=== PATIENT | male | born 1940 | race Caucasian/White ===

== ENCOUNTER 2021-07-03 14:50 | Emergency (ER) | payer MEDICARE ==
[~2021-07-03] VITALS: Ht 170.2 cm; Wt 158.8 kg
[2021-07-03] MEDS ORDERED: SOTROVIMAB 500 MG in SODIUM CHLORIDE 0.9% 100 ML IV ONE (15:00)
[2021-07-03] MEDS ORDERED: SODIUM CHLORIDE 0.9% 100 ML ONE (15:09)
== END 2021-07-03 18:05 | disposition home or self-care (01) ==
LOC: ER 15:11
DX: U07.1 COVID-19 (principal); R05.9 Cough, unspecified; I10 Essential (primary) hypertension; E11.9 Type 2 diabetes mellitus without complications; E66.9 Obesity, unspecified; Z95.1 Presence of aortocoronary bypass graft
CPT/HCPCS: 99283; J7050

== ENCOUNTER 2021-08-17 21:06 | Inpatient (IN) | payer MEDICARE ==
[~2021-08-17] VITALS: Ht 167.6 cm; Wt 161.6 kg
[2021-08-17 21:35] LABS: BASOPHILS # (AUTO) 0.1 (0.0-0.1); BASOPHILS % 1.2 % (0.0-1.0); EOSINOPHILS # (AUTO) 0.2 (0.0-0.4); EOSINOPHILS % 2.6 % (0.0-6.0); HEMATOCRIT 46.7 % (38.2-49.6); HEMOGLOBIN 14.2 g/dL (14.0-18.0); LYMPHOCYTES # (AUTO) 0.8 (1.0-3.2); LYMPHOCYTES % 10.3 % (18.0-39.1); MEAN CORPUSCULAR HEMOGLOBIN 28.9 pg (28-32); MEAN CORPUSCULAR HGB CONC 30.4 g/dL (31-35); MEAN CORPUSCULAR VOLUME 95.1 fL (81-99); MONOCYTES # (AUTO) 0.9 (0.2-0.8); MONOCYTES % 12.2 % (4.4-11.3); NEUTROPHILS # (AUTO) 5.6 (2.1-6.9); NEUTROPHILS % 72.1 % (38.7-80.0); PLATELET COUNT 182 x10e3/uL (140-360); RED BLOOD COUNT 4.91 x10e6/uL (4.3-5.7); RED CELL DISTRIBUTION WIDTH 15.9 % (11.7-14.4)
[2021-08-17 21:54] LABS: ALBUMIN 3.4 g/dL (3.5-5.0); ALBUMIN/GLOBULIN RATIO 0.9 (0.8-2.0); ANION GAP 14.2 mmol/L (8-16); CALCIUM 9.3 mg/dL (8.4-10.2); CREATININE, SERUM 1.19 mg/dL (0.72-1.25); POTASSIUM 4.2 mmol/L (3.5-5.1)
[2021-08-17 22:00] LABS: CREATINE KINASE MB 2.1 ng/mL (0-5.0)
[2021-08-17 22:03] LABS: B-TYPE NATRIURETIC PEPTIDE2 138.1 pg/mL (0-100)
[2021-08-17] MEDS ORDERED: DEXTROSE 50% SYRINGE 50 ML IV PRN (23:00)
[2021-08-17] MEDS ORDERED: ONDANSETRON HCL INJ 2MG/ML 2ML 2 MG/ML VIAL IV PRN (23:00)
[2021-08-17] MEDS ORDERED: FUROSEMIDE INJ 10 MG/ML 4 ML VIAL IV ONE (23:00)
[2021-08-17] MEDS: CEFTRIAXONE 2 GM in SODIUM CHLORIDE 0.9% 100 ML IV SCH (23:21)
[2021-08-17 23:50] VITALS: BP 118/56
[2021-08-17 23:55] VITALS: BP 118/56
[2021-08-18] VITALS (7 sets, daily range): BP systolic 118–150; BP diastolic 56–86
[2021-08-18 02:20] LABS: CREATINE KINASE MB 2.2 ng/mL (0-5.0)
[2021-08-18] MEDS ORDERED: TOPROL XL50 MG PO (06:26)
[2021-08-18] MEDS ORDERED: ALLEGRA ALLERGY60 MG PO (06:26)
[2021-08-18] MEDS ORDERED: ALLOPURINOL100 MG PO (06:26)
[2021-08-18] MEDS ORDERED: ASPIRIN81 MG PO (06:26)
[2021-08-18] MEDS ORDERED: FOLIC ACID0.4 MG PO (06:26)
[2021-08-18] MEDS ORDERED: ROSUVASTATIN CA40 MG (06:26)
[2021-08-18] MEDS ORDERED: AMLODIPINE BESY10 MG PO (06:26)
[2021-08-18] MEDS ORDERED: BENICAR20 MG PO (06:26)
[2021-08-18] MEDS ORDERED: KLOR-CON M1010 MEQ PO (06:26)
[2021-08-18] MEDS ORDERED: MUCINEX600 MG PO (06:26)
[2021-08-18] MEDS ORDERED: HYDROCHLOROTHIA25 MG (06:26)
[2021-08-18] MEDS ORDERED: FUROSEMIDE40 MG PO (06:26)
[2021-08-18] MEDS ORDERED: METFORMIN HCL500 MG PO (06:26)
[2021-08-18 06:55] LABS: CREATINE KINASE MB 3.6 ng/mL (0-5.0)
[2021-08-18] MEDS ORDERED: CHOLECALCIFEROL1 GM PO (06:57)
[2021-08-18] MEDS: INSULIN REGULAR, HUMAN 100 UNIT/1 ML SQ SCH ×4 (07:30→21:00)
[2021-08-18 08:19] LABS: BASOPHILS # (AUTO) 0.1 (0.0-0.1); BASOPHILS % 0.9 % (0.0-1.0); EOSINOPHILS # (AUTO) 0.1 (0.0-0.4); EOSINOPHILS % 1.8 % (0.0-6.0); HEMOGLOBIN 13.6 g/dL (14.0-18.0); LYMPHOCYTES # (AUTO) 0.7 (1.0-3.2); LYMPHOCYTES % 9.3 % (18.0-39.1); MEAN CORPUSCULAR HEMOGLOBIN 28.6 pg (28-32); MEAN CORPUSCULAR HGB CONC 30.2 g/dL (31-35); MEAN CORPUSCULAR VOLUME 94.5 fL (81-99); MONOCYTES # (AUTO) 0.8 (0.2-0.8); NEUTROPHILS # (AUTO) 5.8 (2.1-6.9); NEUTROPHILS % 75.3 % (38.7-80.0); PLATELET COUNT 187 x10e3/uL (140-360); RED BLOOD COUNT 4.76 x10e6/uL (4.3-5.7); RED CELL DISTRIBUTION WIDTH 15.9 % (11.7-14.4)
[2021-08-18 08:40] LABS: ALBUMIN 3.2 g/dL (3.5-5.0); CALCIUM 8.8 mg/dL (8.4-10.2); CREATININE, SERUM 1.03 mg/dL (0.72-1.25)
[2021-08-18] MEDS: CEFTRIAXONE 2 GM in SODIUM CHLORIDE 0.9% 100 ML IV SCH (09:18)
[2021-08-18] MEDS: ZINC SULFATE 50 MG CAP PO SCH (09:18)
[2021-08-18] MEDS: ASCORBIC ACID 500 MG TAB PO SCH ×2 (09:18→17:01)
[2021-08-18] MEDS: DEXAMETHASONE SOD PHOS 10 MG/1 ML VIAL IV SCH (09:18)
[2021-08-18] MEDS: ENOXAPARIN 30 MG/0.3 ML SYR SC SCH ×2 (09:18→17:01)
[2021-08-18] MEDS: FUROSEMIDE INJ 10 MG/ML 4 ML VIAL IV SCH (11:20)
[2021-08-18] MEDS: HYDRALAZINE HCL 25 MG TAB PO SCH ×2 (11:20→17:01)
[2021-08-18] MEDS ORDERED: SODIUM CHLORIDE 0.9% 100 ML ONE (11:22)
[2021-08-18] MEDS ORDERED: IOPAMIDOL 370 MG/ML 200 ML INFUS..BTL INJ ONE (11:22)
[2021-08-18 14:35] LABS: BASOPHILS # (AUTO) 0.1 (0.0-0.1); BASOPHILS % 0.7 % (0.0-1.0); EOSINOPHILS % 0.3 % (0.0-6.0); HEMATOCRIT 48.1 % (38.2-49.6); HEMOGLOBIN 14.5 g/dL (14.0-18.0); LYMPHOCYTES # (AUTO) 0.3 (1.0-3.2); LYMPHOCYTES % 4.8 % (18.0-39.1); MEAN CORPUSCULAR HEMOGLOBIN 28.8 pg (28-32); MEAN CORPUSCULAR HGB CONC 30.1 g/dL (31-35); MEAN CORPUSCULAR VOLUME 95.4 fL (81-99); MONOCYTES # (AUTO) 0.2 (0.2-0.8); MONOCYTES % 2.6 % (4.4-11.3); NEUTROPHILS # (AUTO) 6.2 (2.1-6.9); NEUTROPHILS % 89.4 % (38.7-80.0); PLATELET COUNT 191 x10e3/uL (140-360); RED BLOOD COUNT 5.04 x10e6/uL (4.3-5.7); RED CELL DISTRIBUTION WIDTH 15.8 % (11.7-14.4)
[2021-08-18 14:55] LABS: CREATINE KINASE MB 5.7 ng/mL (0-5.0)
[2021-08-18] MEDS ORDERED: LORATADINE 10 MG TAB PO ONE (17:30)
[2021-08-18] MEDS: METFORMIN HCL 500 MG TAB PO SCH (20:56)
[2021-08-19] VITALS (9 sets, daily range): BP systolic 116–149; BP diastolic 55–79
[2021-08-19 07:00] LABS: BASOPHILS % 0.4 % (0.0-1.0); EOSINOPHILS % 0.1 % (0.0-6.0); HEMATOCRIT 45.9 % (38.2-49.6); HEMOGLOBIN 13.7 g/dL (14.0-18.0); LYMPHOCYTES # (AUTO) 0.6 (1.0-3.2); LYMPHOCYTES % 7.5 % (18.0-39.1); MEAN CORPUSCULAR HEMOGLOBIN 28.8 pg (28-32); MEAN CORPUSCULAR HGB CONC 29.8 g/dL (31-35); MEAN CORPUSCULAR VOLUME 96.4 fL (81-99); MONOCYTES # (AUTO) 0.8 (0.2-0.8); MONOCYTES % 9.5 % (4.4-11.3); NEUTROPHILS # (AUTO) 6.4 (2.1-6.9); NEUTROPHILS % 80.8 % (38.7-80.0); PLATELET COUNT 204 x10e3/uL (140-360); RED BLOOD COUNT 4.76 x10e6/uL (4.3-5.7); RED CELL DISTRIBUTION WIDTH 15.7 % (11.7-14.4)
[2021-08-19] MEDS: INSULIN REGULAR, HUMAN 100 UNIT/1 ML SQ SCH ×4 (07:18→21:00)
[2021-08-19 07:26] LABS: ALBUMIN 3.3 g/dL (3.5-5.0); ANION GAP 13.2 mmol/L (8-16); CALCIUM 9.1 mg/dL (8.4-10.2); CREATININE, SERUM 0.99 mg/dL (0.72-1.25); POTASSIUM 4.2 mmol/L (3.5-5.1)
[2021-08-19] MEDS: CEFTRIAXONE 2 GM in SODIUM CHLORIDE 0.9% 100 ML IV SCH (08:48)
[2021-08-19] MEDS: DEXAMETHASONE SOD PHOS 10 MG/1 ML VIAL IV SCH (08:48)
[2021-08-19] MEDS: FUROSEMIDE INJ 10 MG/ML 4 ML VIAL IV SCH (08:48)
[2021-08-19] MEDS: METFORMIN HCL 500 MG TAB PO SCH ×3 (08:48→17:08)
[2021-08-19] MEDS: FOLIC ACID 1 MG TAB PO SCH (08:49)
[2021-08-19] MEDS: OLMESARTAN 20 MG TAB PO SCH (08:49)
[2021-08-19] MEDS: HYDRALAZINE HCL 25 MG TAB PO SCH ×2 (08:49→17:08)
[2021-08-19] MEDS: GUAIFENESIN 600 MG TAB PO SCH (08:49)
[2021-08-19] MEDS: ASPIRIN 81 MG CHEW TAB PO SCH (08:49)
[2021-08-19] MEDS: ZINC SULFATE 50 MG CAP PO SCH (08:50)
[2021-08-19] MEDS: BALSAM PERU/CASTOR OIL 60 GM OINT...G. TP SCH (08:50)
[2021-08-19] MEDS: ENOXAPARIN 30 MG/0.3 ML SYR SC SCH ×2 (08:50→17:09)
[2021-08-19] MEDS: ALLOPURINOL 100 MG TAB PO SCH ×2 (08:50→17:09)
[2021-08-19] MEDS: ASCORBIC ACID 500 MG TAB PO SCH ×2 (08:50→17:09)
[2021-08-19] MEDS: METOPROLOL SUCCINATE 50 MG TAB XL PO SCH ×2 (08:50→17:08)
[2021-08-19] MEDS: CHOLECALCIFEROL 1,000 UNIT TAB PO SCH (08:50)
[2021-08-19] MEDS: POTASSIUM CHLORIDE 10MEQ EA PO SCH (08:51)
[2021-08-19] MEDS ORDERED: NON-FORMULARY MEDICATION (Folic Acid* 0.4 MG) PO SCH (09:00)
[2021-08-19] MEDS ORDERED: CHOLECALCIFEROL 1 GM PO SCH (09:00)
[2021-08-19] MEDS ORDERED: POTASSIUM CHLORIDE 10 MEQ PO SCH (09:00)
[2021-08-19] MEDS ORDERED: SALINE 0.65% NAS SOLN 1 SPRAY BTL PRN (13:45)
[2021-08-19] MEDS: SODIUM CHLORIDE/ALOE VERA 14.1GM NASAL GEL SCH (17:08)
[2021-08-19] MEDS ORDERED: SODIUM CHLORIDE 0.9% 50ML 50 ML ONE (19:07)
[2021-08-19] MEDS ORDERED: IOPAMIDOL 370 MG/ML 200 ML INFUS..BTL INJ ONE (19:08)
[2021-08-19] MEDS: AZITHROMYCIN 250 MG TAB PO SCH (21:27)
[2021-08-20] VITALS (7 sets, daily range): BP systolic 105–125; BP diastolic 18–68
[2021-08-20 05:04] LABS: BASOPHILS % 0.3 % (0.0-1.0); EOSINOPHILS % 0.2 % (0.0-6.0); HEMATOCRIT 49.9 % (38.2-49.6); HEMOGLOBIN 14.7 g/dL (14.0-18.0); LYMPHOCYTES % 9.7 % (18.0-39.1); MEAN CORPUSCULAR HEMOGLOBIN 28.7 pg (28-32); MEAN CORPUSCULAR HGB CONC 29.5 g/dL (31-35); MEAN CORPUSCULAR VOLUME 97.5 fL (81-99); MONOCYTES % 10.2 % (4.4-11.3); NEUTROPHILS % 78.4 % (38.7-80.0); PLATELET COUNT 228 x10e3/uL (140-360); RED BLOOD COUNT 5.12 x10e6/uL (4.3-5.7); RED CELL DISTRIBUTION WIDTH 15.7 % (11.7-14.4)
[2021-08-20 05:39] LABS: ALBUMIN 3.6 g/dL (3.5-5.0); CALCIUM 9.5 mg/dL (8.4-10.2); CREATININE, SERUM 1.16 mg/dL (0.72-1.25)
[2021-08-20] MEDS: INSULIN REGULAR, HUMAN 100 UNIT/1 ML SQ SCH ×4 (07:30→20:24)
[2021-08-20] MEDS: FUROSEMIDE INJ 10 MG/ML 4 ML VIAL IV SCH (08:51)
[2021-08-20] MEDS: DEXAMETHASONE SOD PHOS 10 MG/1 ML VIAL IV SCH (08:51)
[2021-08-20] MEDS: CEFTRIAXONE 2 GM in SODIUM CHLORIDE 0.9% 100 ML IV SCH (08:51)
[2021-08-20] MEDS: ASPIRIN 81 MG CHEW TAB PO SCH (08:52)
[2021-08-20] MEDS: SODIUM CHLORIDE/ALOE VERA 14.1GM NASAL GEL SCH ×2 (08:52→16:47)
[2021-08-20] MEDS: HYDRALAZINE HCL 25 MG TAB PO SCH ×2 (08:52→16:47)
[2021-08-20] MEDS: FOLIC ACID 1 MG TAB PO SCH (08:52)
[2021-08-20] MEDS: METOPROLOL SUCCINATE 50 MG TAB XL PO SCH ×2 (08:53→16:48)
[2021-08-20] MEDS: ENOXAPARIN 30 MG/0.3 ML SYR SC SCH ×2 (08:53→16:48)
[2021-08-20] MEDS: ASCORBIC ACID 500 MG TAB PO SCH ×2 (08:53→16:48)
[2021-08-20] MEDS: CHOLECALCIFEROL 1,000 UNIT TAB PO SCH (08:53)
[2021-08-20] MEDS: BALSAM PERU/CASTOR OIL 60 GM OINT...G. TP SCH (08:53)
[2021-08-20] MEDS: GUAIFENESIN 600 MG TAB PO SCH (08:53)
[2021-08-20] MEDS: ZINC SULFATE 50 MG CAP PO SCH (08:53)
[2021-08-20] MEDS: ALLOPURINOL 100 MG TAB PO SCH ×2 (08:53→16:48)
[2021-08-20] MEDS: OLMESARTAN 20 MG TAB PO SCH (08:54)
[2021-08-20] MEDS: METFORMIN HCL 500 MG TAB PO SCH ×3 (08:55→16:47)
[2021-08-20] MEDS: POTASSIUM CHLORIDE 10MEQ EA PO SCH (08:55)
[2021-08-20] MEDS ORDERED: ONDANSETRON HCL 4 MG ORAL DISINTEGRATING TAB PO PRN (10:45)
[2021-08-20] MEDS: ACETAMINOPHEN 325 MG TAB PO PRN ×2 (20:23→22:06)
[2021-08-20] MEDS: AZITHROMYCIN 250 MG TAB PO SCH (20:23)
[2021-08-21] VITALS (8 sets, daily range): BP systolic 115–128; BP diastolic 56–68
[2021-08-21 04:58] LABS: BASOPHILS % 0.3 % (0.0-1.0); HEMATOCRIT 50.5 % (38.2-49.6); HEMOGLOBIN 14.8 g/dL (14.0-18.0); LYMPHOCYTES # (AUTO) 0.9 (1.0-3.2); MEAN CORPUSCULAR HEMOGLOBIN 28.5 pg (28-32); MEAN CORPUSCULAR HGB CONC 29.3 g/dL (31-35); MEAN CORPUSCULAR VOLUME 97.1 fL (81-99); MONOCYTES % 10.1 % (4.4-11.3); NEUTROPHILS # (AUTO) 7.7 (2.1-6.9); NEUTROPHILS % 78.5 % (38.7-80.0); PLATELET COUNT 222 x10e3/uL (140-360); RED CELL DISTRIBUTION WIDTH 15.7 % (11.7-14.4)
[2021-08-21 05:34] LABS: ALBUMIN 3.6 g/dL (3.5-5.0); ALBUMIN/GLOBULIN RATIO 1.1 (0.8-2.0); ANION GAP 15.8 mmol/L (8-16); CALCIUM 9.6 mg/dL (8.4-10.2); CREATININE, SERUM 1.2 mg/dL (0.72-1.25); POTASSIUM 4.8 mmol/L (3.5-5.1)
[2021-08-21] MEDS: INSULIN REGULAR, HUMAN 100 UNIT/1 ML SQ SCH ×4 (07:30→20:27)
[2021-08-21] MEDS: METFORMIN HCL 500 MG TAB PO SCH ×3 (08:18→16:52)
[2021-08-21] MEDS: CEFTRIAXONE 2 GM in SODIUM CHLORIDE 0.9% 100 ML IV SCH (08:18)
[2021-08-21] MEDS: SODIUM CHLORIDE/ALOE VERA 14.1GM NASAL GEL SCH ×2 (08:18→16:52)
[2021-08-21] MEDS: DEXAMETHASONE SOD PHOS 10 MG/1 ML VIAL IV SCH (08:18)
[2021-08-21] MEDS: FOLIC ACID 1 MG TAB PO SCH (08:19)
[2021-08-21] MEDS: HYDRALAZINE HCL 25 MG TAB PO SCH ×2 (08:19→16:52)
[2021-08-21] MEDS: ASPIRIN 81 MG CHEW TAB PO SCH (08:19)
[2021-08-21] MEDS: OLMESARTAN 20 MG TAB PO SCH (08:19)
[2021-08-21] MEDS: FUROSEMIDE 40 MG TAB PO SCH (08:19)
[2021-08-21] MEDS: ASCORBIC ACID 500 MG TAB PO SCH ×2 (08:19→16:52)
[2021-08-21] MEDS: GUAIFENESIN 600 MG TAB PO SCH (08:19)
[2021-08-21] MEDS: POTASSIUM CHLORIDE 10MEQ EA PO SCH (08:19)
[2021-08-21] MEDS: ENOXAPARIN 30 MG/0.3 ML SYR SC SCH ×2 (08:20→16:52)
[2021-08-21] MEDS: ZINC SULFATE 50 MG CAP PO SCH (08:20)
[2021-08-21] MEDS: METOPROLOL SUCCINATE 50 MG TAB XL PO SCH ×2 (08:20→16:53)
[2021-08-21] MEDS: CHOLECALCIFEROL 1,000 UNIT TAB PO SCH (08:20)
[2021-08-21] MEDS: ALLOPURINOL 100 MG TAB PO SCH ×2 (08:20→16:52)
[2021-08-21] MEDS: BALSAM PERU/CASTOR OIL 60 GM OINT...G. TP SCH (08:20)
[2021-08-22] VITALS (8 sets, daily range): BP systolic 123–145; BP diastolic 48–96
[2021-08-22 06:38] LABS: BASOPHILS % 0.4 % (0.0-1.0); EOSINOPHILS % 0.4 % (0.0-6.0); HEMATOCRIT 51.6 % (38.2-49.6); HEMOGLOBIN 14.8 g/dL (14.0-18.0); LYMPHOCYTES % 9.1 % (18.0-39.1); MEAN CORPUSCULAR HEMOGLOBIN 28.7 pg (28-32); MEAN CORPUSCULAR HGB CONC 28.7 g/dL (31-35); MONOCYTES # (AUTO) 1.2 (0.2-0.8); MONOCYTES % 10.8 % (4.4-11.3); NEUTROPHILS # (AUTO) 8.5 (2.1-6.9); NEUTROPHILS % 77.4 % (38.7-80.0); PLATELET COUNT 172 x10e3/uL (140-360); RED BLOOD COUNT 5.16 x10e6/uL (4.3-5.7); RED CELL DISTRIBUTION WIDTH 15.6 % (11.7-14.4)
[2021-08-22 07:01] LABS: ALBUMIN 3.5 g/dL (3.5-5.0); ALBUMIN/GLOBULIN RATIO 1.1 (0.8-2.0); ANION GAP 17.1 mmol/L (8-16); CALCIUM 9.5 mg/dL (8.4-10.2); CREATININE, SERUM 1.33 mg/dL (0.72-1.25); POTASSIUM 5.1 mmol/L (3.5-5.1)
[2021-08-22] MEDS: INSULIN REGULAR, HUMAN 100 UNIT/1 ML SQ SCH ×4 (07:30→20:46)
[2021-08-22] MEDS: OLMESARTAN 20 MG TAB PO SCH (08:24)
[2021-08-22] MEDS: METFORMIN HCL 500 MG TAB PO SCH ×3 (08:24→16:50)
[2021-08-22] MEDS: HYDRALAZINE HCL 25 MG TAB PO SCH ×2 (08:24→16:50)
[2021-08-22] MEDS: FOLIC ACID 1 MG TAB PO SCH (08:24)
[2021-08-22] MEDS: DEXAMETHASONE SOD PHOS 10 MG/1 ML VIAL IV SCH (08:24)
[2021-08-22] MEDS: ASPIRIN 81 MG CHEW TAB PO SCH (08:24)
[2021-08-22] MEDS: ZINC SULFATE 50 MG CAP PO SCH (08:25)
[2021-08-22] MEDS: CHOLECALCIFEROL 1,000 UNIT TAB PO SCH (08:25)
[2021-08-22] MEDS: METOPROLOL SUCCINATE 50 MG TAB XL PO SCH ×2 (08:25→16:52)
[2021-08-22] MEDS: ASCORBIC ACID 500 MG TAB PO SCH ×2 (08:25→16:50)
[2021-08-22] MEDS: GUAIFENESIN 600 MG TAB PO SCH (08:25)
[2021-08-22] MEDS: FUROSEMIDE 40 MG TAB PO SCH (08:25)
[2021-08-22] MEDS: ENOXAPARIN 30 MG/0.3 ML SYR SC SCH ×2 (08:25→16:50)
[2021-08-22] MEDS: ALLOPURINOL 100 MG TAB PO SCH ×2 (08:25→16:50)
[2021-08-22] MEDS: BALSAM PERU/CASTOR OIL 60 GM OINT...G. TP SCH (08:25)
[2021-08-22] MEDS: SODIUM CHLORIDE/ALOE VERA 14.1GM NASAL GEL SCH ×2 (08:26→16:51)
[2021-08-22] MEDS: POTASSIUM CHLORIDE 10MEQ EA PO SCH (08:26)
[2021-08-22 18:34] LABS: MAGNESIUM 2.1 MG/DL (1.3-2.1)
[2021-08-22 18:55] LABS: THYROID STIMULATING HORMONE 1.487 uIU/mL (0.350-4.940)
[2021-08-22] MEDS ORDERED: NYSTATIN 15 GM POWDER UD BTL TOP PRN (20:00)
[2021-08-22] MEDS: ACETAMINOPHEN 325 MG TAB PO PRN (20:47)
[2021-08-23] VITALS (7 sets, daily range): BP systolic 123–140; BP diastolic 53–96
[2021-08-23] MEDS: METFORMIN HCL 500 MG TAB PO SCH ×3 (08:00→17:55)
[2021-08-23] MEDS: INSULIN REGULAR, HUMAN 100 UNIT/1 ML SQ SCH ×4 (08:55→19:46)
[2021-08-23 08:56] LABS: BASOPHILS # (AUTO) 0.1 (0.0-0.1); BASOPHILS % 0.4 % (0.0-1.0); EOSINOPHILS # (AUTO) 0.2 (0.0-0.4); EOSINOPHILS % 1.2 % (0.0-6.0); HEMATOCRIT 52.6 % (38.2-49.6); HEMOGLOBIN 15.3 g/dL (14.0-18.0); LYMPHOCYTES # (AUTO) 1.5 (1.0-3.2); LYMPHOCYTES % 11.9 % (18.0-39.1); MEAN CORPUSCULAR HEMOGLOBIN 28.6 pg (28-32); MEAN CORPUSCULAR HGB CONC 29.1 g/dL (31-35); MEAN CORPUSCULAR VOLUME 98.3 fL (81-99); MONOCYTES # (AUTO) 1.5 (0.2-0.8); NEUTROPHILS # (AUTO) 9.1 (2.1-6.9); NEUTROPHILS % 72.6 % (38.7-80.0); PLATELET COUNT 195 x10e3/uL (140-360); RED BLOOD COUNT 5.35 x10e6/uL (4.3-5.7); RED CELL DISTRIBUTION WIDTH 15.6 % (11.7-14.4)
[2021-08-23] MEDS: HYDRALAZINE HCL 25 MG TAB PO SCH ×2 (08:56→17:58)
[2021-08-23] MEDS: SODIUM CHLORIDE/ALOE VERA 14.1GM NASAL GEL SCH ×2 (08:56→17:55)
[2021-08-23] MEDS: DEXAMETHASONE SOD PHOS 10 MG/1 ML VIAL IV SCH (08:56)
[2021-08-23] MEDS: OLMESARTAN 20 MG TAB PO SCH (08:57)
[2021-08-23] MEDS: ASPIRIN 81 MG CHEW TAB PO SCH (08:57)
[2021-08-23] MEDS: FOLIC ACID 1 MG TAB PO SCH (08:57)
[2021-08-23] MEDS: GUAIFENESIN 600 MG TAB PO SCH (08:58)
[2021-08-23] MEDS: ASCORBIC ACID 500 MG TAB PO SCH ×2 (08:58→17:55)
[2021-08-23] MEDS: ZINC SULFATE 50 MG CAP PO SCH (08:58)
[2021-08-23] MEDS: METOPROLOL SUCCINATE 50 MG TAB XL PO SCH ×2 (08:58→17:58)
[2021-08-23] MEDS: CHOLECALCIFEROL 1,000 UNIT TAB PO SCH (08:58)
[2021-08-23] MEDS: BALSAM PERU/CASTOR OIL 60 GM OINT...G. TP SCH (08:59)
[2021-08-23] MEDS: ALLOPURINOL 100 MG TAB PO SCH ×2 (08:59→17:55)
[2021-08-23] MEDS: ENOXAPARIN 30 MG/0.3 ML SYR SC SCH ×2 (08:59→17:55)
[2021-08-23] MEDS: POTASSIUM CHLORIDE 10MEQ EA PO SCH (09:00)
[2021-08-23 09:31] LABS: ALBUMIN 3.5 g/dL (3.5-5.0); CALCIUM 9.5 mg/dL (8.4-10.2); CREATININE, SERUM 0.94 mg/dL (0.72-1.25)
[2021-08-23 09:32] LABS: ALBUMIN/GLOBULIN RATIO 1.2 (0.8-2.0)
[2021-08-23] MEDS ORDERED: FLUCONAZOLE 100 MG TAB PO ONE (20:00)
[2021-08-24] VITALS (7 sets, daily range): BP systolic 111–133; BP diastolic 55–78
[2021-08-24 05:27] LABS: BASOPHILS # (AUTO) 0.1 (0.0-0.1); BASOPHILS % 0.5 % (0.0-1.0); EOSINOPHILS # (AUTO) 0.2 (0.0-0.4); EOSINOPHILS % 1.8 % (0.0-6.0); HEMATOCRIT 49.9 % (38.2-49.6); HEMOGLOBIN 14.6 g/dL (14.0-18.0); LYMPHOCYTES # (AUTO) 0.8 (1.0-3.2); LYMPHOCYTES % 6.8 % (18.0-39.1); MEAN CORPUSCULAR HEMOGLOBIN 28.9 pg (28-32); MEAN CORPUSCULAR HGB CONC 29.3 g/dL (31-35); MEAN CORPUSCULAR VOLUME 98.6 fL (81-99); MONOCYTES # (AUTO) 1.3 (0.2-0.8); MONOCYTES % 11.6 % (4.4-11.3); NEUTROPHILS # (AUTO) 8.6 (2.1-6.9); NEUTROPHILS % 77.4 % (38.7-80.0); PLATELET COUNT 184 x10e3/uL (140-360); RED BLOOD COUNT 5.06 x10e6/uL (4.3-5.7); RED CELL DISTRIBUTION WIDTH 15.4 % (11.7-14.4)
[2021-08-24 05:53] LABS: ALBUMIN 3.3 g/dL (3.5-5.0); ALBUMIN/GLOBULIN RATIO 1.2 (0.8-2.0); ANION GAP 14.6 mmol/L (8-16); CALCIUM 9.4 mg/dL (8.4-10.2); CREATININE, SERUM 0.84 mg/dL (0.72-1.25); POTASSIUM 4.6 mmol/L (3.5-5.1)
[2021-08-24] MEDS: INSULIN REGULAR, HUMAN 100 UNIT/1 ML SQ SCH ×4 (07:30→20:20)
[2021-08-24] MEDS: METFORMIN HCL 500 MG TAB PO SCH ×3 (08:45→17:03)
[2021-08-24] MEDS: GUAIFENESIN 600 MG TAB PO SCH (08:46)
[2021-08-24] MEDS: ASPIRIN 81 MG CHEW TAB PO SCH (08:46)
[2021-08-24] MEDS: POTASSIUM CHLORIDE 10MEQ EA PO SCH (08:46)
[2021-08-24] MEDS: FOLIC ACID 1 MG TAB PO SCH (08:46)
[2021-08-24] MEDS: SODIUM CHLORIDE/ALOE VERA 14.1GM NASAL GEL SCH ×2 (08:46→17:03)
[2021-08-24] MEDS: CHOLECALCIFEROL 1,000 UNIT TAB PO SCH (08:47)
[2021-08-24] MEDS: ENOXAPARIN 30 MG/0.3 ML SYR SC SCH ×2 (08:47→17:04)
[2021-08-24] MEDS: BALSAM PERU/CASTOR OIL 60 GM OINT...G. TP SCH (08:47)
[2021-08-24] MEDS: METOPROLOL SUCCINATE 50 MG TAB XL PO SCH ×2 (08:47→17:04)
[2021-08-24] MEDS: ASCORBIC ACID 500 MG TAB PO SCH ×2 (08:47→17:04)
[2021-08-24] MEDS: ZINC SULFATE 50 MG CAP PO SCH (08:47)
[2021-08-24] MEDS: ALLOPURINOL 100 MG TAB PO SCH ×2 (08:47→17:04)
[2021-08-24] MEDS: DEXAMETHASONE SOD PHOS 10 MG/1 ML VIAL IV SCH (08:48)
[2021-08-24] MEDS: HYDRALAZINE HCL 25 MG TAB PO SCH ×2 (09:00→17:03)
[2021-08-24] MEDS: OLMESARTAN 20 MG TAB PO SCH (09:00)
[2021-08-24] MEDS ORDERED: ZOLPIDEM TARTRATE 10 MG TAB PO SCH (21:00)
[2021-08-25 01:38] VITALS: BP 137/64
[2021-08-25 02:57] LABS: BASOPHILS % 0.2 % (0.0-1.0); EOSINOPHILS % 0.1 % (0.0-6.0); HEMATOCRIT 49.9 % (38.2-49.6); HEMOGLOBIN 14.4 g/dL (14.0-18.0); LYMPHOCYTES # (AUTO) 0.6 (1.0-3.2); MEAN CORPUSCULAR HEMOGLOBIN 28.7 pg (28-32); MEAN CORPUSCULAR HGB CONC 28.9 g/dL (31-35); MEAN CORPUSCULAR VOLUME 99.6 fL (81-99); MONOCYTES # (AUTO) 0.9 (0.2-0.8); MONOCYTES % 7.7 % (4.4-11.3); NEUTROPHILS # (AUTO) 9.5 (2.1-6.9); NEUTROPHILS % 85.1 % (38.7-80.0); PLATELET COUNT 186 x10e3/uL (140-360); RED BLOOD COUNT 5.01 x10e6/uL (4.3-5.7); RED CELL DISTRIBUTION WIDTH 15.2 % (11.7-14.4)
[2021-08-25 03:09] VITALS: BP 131/69
[2021-08-25 03:11] LABS: ALBUMIN 3.2 g/dL (3.5-5.0); BILIRUBIN,DIRECT 0.2 mg/dL (0.0-0.5)
[2021-08-25 03:24] LABS: CALCIUM 9.5 mg/dL (8.4-10.2); CREATININE, SERUM 0.84 mg/dL (0.72-1.25)
[2021-08-25] MEDS: INSULIN REGULAR, HUMAN 100 UNIT/1 ML SQ SCH ×2 (07:30→11:30)
[2021-08-25 08:00] VITALS: BP 131/69
[2021-08-25 08:11] VITALS: BP 112/57
[2021-08-25] MEDS: OLMESARTAN 20 MG TAB PO SCH (08:59)
[2021-08-25] MEDS: HYDRALAZINE HCL 25 MG TAB PO SCH (08:59)
[2021-08-25] MEDS: ASPIRIN 81 MG CHEW TAB PO SCH (08:59)
[2021-08-25] MEDS: METFORMIN HCL 500 MG TAB PO SCH ×2 (08:59→11:51)
[2021-08-25] MEDS: FOLIC ACID 1 MG TAB PO SCH (08:59)
[2021-08-25] MEDS: SODIUM CHLORIDE/ALOE VERA 14.1GM NASAL GEL SCH (08:59)
[2021-08-25] MEDS: BALSAM PERU/CASTOR OIL 60 GM OINT...G. TP SCH (09:00)
[2021-08-25] MEDS: ALLOPURINOL 100 MG TAB PO SCH (09:00)
[2021-08-25] MEDS ORDERED: FLUCONAZOLE 100 MG TAB PO SCH (09:00)
[2021-08-25] MEDS: GUAIFENESIN 600 MG TAB PO SCH (09:00)
[2021-08-25] MEDS: ASCORBIC ACID 500 MG TAB PO SCH (09:00)
[2021-08-25] MEDS: CHOLECALCIFEROL 1,000 UNIT TAB PO SCH (09:00)
[2021-08-25] MEDS: ZINC SULFATE 50 MG CAP PO SCH (09:00)
[2021-08-25] MEDS: POTASSIUM CHLORIDE 10MEQ EA PO SCH (09:00)
[2021-08-25] MEDS: METOPROLOL SUCCINATE 50 MG TAB XL PO SCH (09:00)
[2021-08-25 12:13] VITALS: BP 124/65
== END 2021-08-25 16:56 | disposition home or self-care (01) | DRG 177 ==
LOC: ER 21:11 → ERHOLD 22:56 → IMCU 23:45
PROVIDERS: ADMIT Specialist; ATTEND Specialist
PROC: 8E0ZXY6 Isolation (ICD-10-PCS; principal; 2021-08-17)
PROC: 3E03329 Introduction of Other Anti-infective into Peripheral Vein, Percutaneous Approach (ICD-10-PCS; 2021-08-17)
DX: U07.1 COVID-19 (principal); J12.82 Pneumonia due to coronavirus disease 2019; J96.01 Acute respiratory failure with hypoxia; I50.23 Acute on chronic systolic (congestive) heart failure; J15.9 Unspecified bacterial pneumonia; Z68.43 Body mass index [BMI] 50.0-59.9, adult; N17.9 Acute kidney failure, unspecified; I25.10 Atherosclerotic heart disease of native coronary artery without angina pectoris; Z95.1 Presence of aortocoronary bypass graft; G47.33 Obstructive sleep apnea (adult) (pediatric); E11.9 Type 2 diabetes mellitus without complications; Z85.820 Personal history of malignant melanoma of skin; Z85.89 Personal history of malignant neoplasm of other organs and systems; E66.01 Morbid (severe) obesity due to excess calories; M10.9 Gout, unspecified; E78.5 Hyperlipidemia, unspecified; I11.0 Hypertensive heart disease with heart failure; I87.2 Venous insufficiency (chronic) (peripheral); E88.81 Metabolic syndrome and other insulin resistance
CPT/HCPCS: 36415; 71045; 71260; 80048; 80053; 80076; 82550; 82553; 82948; 83605; 83735; 83880; 84443; 84484; 85025; 85379; 87040; 93005; 93306; 94660; 94799; 96360; 96372; 99251; 99284; J0456; J0696; J1100; J1650; J1817; J1940; J7050; Q9967; U0002